=== PATIENT | female | born 1985 | race Caucasian/White ===

== ENCOUNTER 2021-03-10 17:10 | Emergency (ER) | payer SELFPAY ==
[2021-03-10 17:14] VITALS: BP 121/58; PULSE 89; RESP 16; TEMP 98.5
[2021-03-10] MEDS ORDERED: KETOROLAC 15 MG/ML 1 ML VIAL IM STA (18:00)
[2021-03-10] MEDS ORDERED: AMOXIC-POT CLAV 875-125MG 1 EACH TAB PO STA (18:00)
--- NOTE | 2021-03-10 18:03 | ED ---
General Adult HPI - General Chief complaint: Dental/Oral Stated complaint: dental issue Time Seen by Provider: 03/10/21 17:20 Source: patient Mode of arrival: ambulatory Limitations: no limitations - History of Present Illness Initial comments: 35 year-old female patient presents to the emergency department for evaluation of left lower dental pain. Patient states she broke her tooth a few days ago. 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 States that she does have an appointment with oral surgery in [place] this week. Her physician requested she come here to get antibiotics and pain medication to aid during her travels. Patient denies any trismus or difficulty swallowing. Denies any nausea or vomiting. - Related Data Previous Rx's Medication Instructions Recorded Amoxic-Pot Clav 875-125Mg 1 tab PO Q12HR #20 tablet 03/10/21 [Augmentin 875-125] oxyCODONE HCL/ACETAMINOPHEN 1 tab PO Q6HR PRN 3 Days #12 tab 03/10/21 [Percocet 5-325 mg] Allergies Allergy/AdvReac Type Severity Reaction Status Date / Time morphine Allergy Unknown Verified 03/10/21 17:14 Review of Systems ROS Statement: Those systems with pertinent positive or pertinent negative responses have been documented in the HPI. ROS Other: All systems not noted in ROS Statement are negative. Past Medical History Past Medical History: No Reported History History of Any Multi-Drug Resistant Organisms: None Reported Past Surgical History: Section, Hysterectomy Past Psychological History: No Psychological Hx Reported Smoking Status: Never smoker Past Alcohol Use History: None Reported Past Drug Use History: None Reported General Exam Limitations: no limitations General appearance: alert, in no apparent distress, other (This is a well- developed, well-nourished adult female patient in no acute distress. Vital signs upon presentation are temperature 98.5F, pulse 89, respirations 16, blood pressure 121/58, pulse ox 100% on room air.) ENT exam: Present: mucous membranes moist, other (There is broken tooth #17. No surrounding gingival erythema or hyperplasia. No evidence of drainable abscess.) Respiratory exam: Present: normal lung sounds bilaterally. Absent: respiratory distress, wheezes, rales, rhonchi, stridor Cardiovascular Exam: Present: regular rate, normal rhythm, normal heart sounds. Absent: systolic murmur, diastolic murmur, rubs, gallop, clicks Neurological exam: Present: alert, oriented X3, CN II-XII intact Psychiatric exam: Present: normal affect, normal mood Skin exam: Present: warm, dry, intact, normal color. Absent: rash Course Vital Signs 03/10/21 17:12 Temperature 98.5 F Pulse Rate 89 Respiratory 16 Rate Blood Pressure 121/58 O2 Sat by Pulse 100 Oximetry Medical Decision Making - Medical Decision Making 35-year-old female patient presenting to the emergency department today for evaluation of broken tooth. Physical examination did reveal broken tooth #17. No evidence for drainable abscess. She is afebrile. She'll be started on antibiotics. She'll be given pain medication. Return parameters were discussed in detail. She does have a boil with oral surgeon next week. She verbalizes understanding and agrees with this plan. My attending is Dr. Michel. Disposition Clinical Impression: Pain, dental, Dental infection Disposition: HOME SELF-CARE Condition: Good Instructions (If sedation given, give patient instructions): Toothache (ED) Additional Instructions: Take medications as directed. Follow-up with oral surgery for further eval uation as soon as possible. Return to the emergency department for any new, worsening, or concerning symptoms. Prescriptions: Amoxic-Pot Clav 875-125Mg [Augmentin 875-125] 1 tab PO Q12HR #20 tablet oxyCODONE HCL/ACETAMINOPHEN [Percocet 5-325 mg] 1 tab PO Q6HR PRN 3 Days #12 tab PRN Reason: Pain Is patient prescribed a controlled substance at d/c from ED?: Yes When asked, does pt state using other controlled substances?: No If prescribed controlled substance>3 days was MAPS reviewed?: Prescribed <3 Days If opioid is for acute pain is fill amount 7 days or less?: Yes If Rx opioid, was Start Talking consent form obtained?: Yes Referrals: Nonstaff,Physician [Primary Care Provider] - 1-2 days Time of Disposition: 18:03
== END 2021-03-10 18:39 | disposition home or self-care (01) ==
LOC: EC 17:10
DX: K04.7 Periapical abscess without sinus (principal)
CPT/HCPCS: 99282; 96372; J1885